=== PATIENT | female | born 1980 | race American Indian/Alaskan Native ===

== ENCOUNTER 2018-04-14 13:37 | Emergency (ER) | payer MEDICARE ==
[2018-04-14 14:05] VITALS: BP 107/59
[2018-04-14] MEDS ORDERED: NACL 0.9% 1000 ML 1,000 ML IV ONE (14:47)
[2018-04-14] MEDS ORDERED: ZOFRAN IV ONE (14:52)
--- NOTE | 2018-04-14 14:52 | Emergency Department Report ---
ED General Adult HPI - General Chief complaint: Nausea/Vomiting/Diarrhea Stated complaint: SENT FROM DR ARAUJO OFFICE/DEHYDRATION Time Seen by Provider: 04/14/18 14:39 Source: patient, family Mode of arrival: Ambulatory Limitations: Altered Mental Status - History of Present Illness Initial comments: Sylvie is a pleasant 37 yo female with IDDM and Down Syndrome who presents with nausea and vomiting. She had fever and chills. Also productive cough. Mother gave hx. Patient and mother was referred from [facility] Dr. Emani Araujo for evaluation of dehydration, nausea, vomiting. PCP Dr. Araujo -: Gradual, days(s) (3) Associated Symptoms: nausea/vomiting - Related Data Previous Rx's Medication Instructions Recorded Last Taken Type Ondansetron [Zofran Odt] 4 mg PO Q8H PRN #9 tab.rapdis 04/14/18 Unknown Rx Allergies Allergy/AdvReac Type Severity Reaction Status Date / Time No Known Allergies Allergy Unverified 02/24/15 09:17 ED Review of Systems ROS: Stated complaint: SENT FROM DR ARAUJO OFFICE/DEHYDRATION Other details as noted in HPI Comment: Unobtainable due to pts medical conditions ED Past Medical Hx - Past Medical History Hx Diabetes: Yes Additional medical history: Downs syndrome - Surgical History Past Surgical History?: No - Social History Smoking Status: Never Smoker Substance Use Type: None - Medications Home Medications: Home Medications Medication Instructions Recorded Confirmed Last Taken Type Ondansetron [Zofran Odt] 4 mg PO Q8H PRN #9 tab.rapdis 04/14/18 Unknown Rx ED Physical Exam - General Limitations: Altered Mental Status General appearance: alert, in no apparent distress - Head Head exam: Present: atraumatic, normocephalic - Eye Eye exam: Present: normal appearance - ENT ENT exam: Present: mucous membranes moist - Neck Neck exam: Present: normal inspection. Absent: tenderness, meningismus - Respiratory Respiratory exam: Present: normal lung sounds bilaterally. Absent: respiratory distress, wheezes, rales, rhonchi - Cardiovascular Cardiovascular Exam: Present: regular rate, normal rhythm, normal heart sounds. Absent: bradycardia, tachycardia, systolic murmur, diastolic murmur, rubs, gallop - GI/Abdominal GI/Abdominal exam: Present: soft, normal bowel sounds. Absent: distended, tenderness, guarding, rebound - Extremities Exam Extremities exam: Present: normal inspection - Back Exam Back exam: Present: normal inspection - Neurological Exam Neurological exam: Present: alert, oriented X3 - Psychiatric Psychiatric exam: Present: normal mood, flat affect - Skin Skin exam: Present: warm, dry, intact, normal color. Absent: rash ED Course Vital Signs 04/14/18 14:01 Temperature 98.4 F Pulse Rate 91 H Respiratory 16 Rate Blood Pressure 107/59 O2 Sat by Pulse 98 Oximetry ED Medical Decision Making - Lab Data Result diagrams: 04/14/18 15:04 - Medical Decision Making Sylvie presents with hx of dehydration. She received IVF in the ED. She feels better. BMP revealed hyperglycemia without acidosis. dc'd home with prescription for zofran Critical care attestation.: If time is entered above; I have spent that time in minutes in the direct care of this critically ill patient, excluding procedure time. ED Disposition Clinical Impression: Dehydration, Hyperglycemia due to type 1 diabetes mellitus Disposition: DC-01 TO HOME OR SELFCARE Is pt being admited?: No Does the pt Need Aspirin: No Condition: Stable Instructions: Dehydration (ED) Prescriptions: Ondansetron [Zofran Odt] 4 mg PO Q8H PRN #9 tab.rapdis PRN Reason: Nausea Referrals: EMANI ARAUJO MD [Staff Physician] - 3-5 Days Time of Disposition: 16:54
[2018-04-14 16:31] LABS: BUN/Creatinine Ratio 11; Blood Urea Nitrogen 9 mg/dL (7-17); Calcium 9.2 mg/dL (8.4-10.2); Hemolysis Index 2
[2018-04-14 16:41] LABS: Hematocrit 33.7 % (30.3-42.9); Hemoglobin 11.4 gm/dl (10.1-14.3); Mean Corpuscular HGB Conc 34 % (30-34); Mean Corpuscular Hemoglobin 32 pg (28-32); Mean Corpuscular Volume 94 fl (79-97); Platelet Count 238 K/mm3 (140-440); Red Blood Count 3.57 M/mm3 (3.65-5.03); Red Cell Distribution Width 14.3 % (13.2-15.2)
[2018-04-14 18:59] LABS: Anisocytosis 1+; Band Neutrophils # (Manual) 0.1 K/mm3; Total Cells Counted 100
[2018-04-14 19:00] LABS: Hypochromasia 1+; Large Platelets 1+; Platelet Estimate Consistent w Auto
== END 2018-04-14 17:24 | disposition home or self-care (01) ==
LOC: ED 13:37
DX: E86.0 Dehydration (principal); E10.65 Type 1 diabetes mellitus with hyperglycemia
CPT/HCPCS: 36415; 80048; 85007; 85025; 96361; 96374; 99283; J2405; J7030